=== PATIENT | male | born 1990 | race Caucasian/White ===

== ENCOUNTER 2020-04-29 10:51 | Emergency (ER) | payer MEDICAID, SELFPAY ==
[2020-04-29 10:53] VITALS: BP 135/94; PULSE 72; RESP 17; TEMP 36.4; O2SAT 100; BMI 23.3
--- NOTE | 2020-04-29 11:07 | ED.VISSUMM ---
- ER Visit Summary Date of Service: 04/29/20 Chief Complaint: Rash History of Present Illness: The patient is a 29 M who presents with a rash that has been getting worse over the past 3 days. Patient states he was clearing some brush and trees 3 days ago. Patient did not see any poison mary. Patient states the rash is pruritic. Patient states the rash is over both hands, arms, face, neck, and abdomen. Patient denies any difficulty breathing or difficulty swallowing. Patient states nothing makes it better or worse. Physical Examination: Vital signs are stable. Patient is afebrile. Patient is in no acute distress. Oral mucosa is pink and moist. Neck is supple. Trachea is midline. There is no JVD. Heart was regular rate and rhythm. Lungs are clear and equal bilaterally. Abdomen is soft and nontender. Skin is warm and dry. There is a patchy erythematous rash over the upper extremities, face, neck, chest, and abdomen. There are areas of linear vesicles. There is some mild drainage. There is no crusting. There are no petechia noted. There is no involvement of the mucous membranes. Cranial nerves II through XII are intact. There are no focal motor or sensory deficits noted. Emergency Department Course and Treatment: Patient was given a dose of prednisone here. Patient was given a prescription for prednisone. Patient was instructed to take Benadryl or Claritin as needed for any itching. Patient was instructed to follow-up with his primary care physician in 5 to 7 days. Patient understood and was agreeable with the plan. All questions were answered. Disposition: Discharge home Impression: 1. Rhus dermatitis This note was generated with [employer] dictation software. It may contain incorrect words, spelling, and punctuation that were not noted in review of the chart prior to signing ED Disposition - Plan for ED Patient: Disposition: Home or Assisted Living Diagnosis: Rhus dermatitis Instructions: ED Dermatitis Poison Mary Prescriptions: Prednisone [Deltasone] 60 mg PO DAILY #12 tab Prescription Printed Referrals: Alexey Romeo MD [STAFF PHYSICIAN] - 5-7 Days
--- NOTE | 2020-04-29 11:32 | ED.RN ---
apresoline was ordered on the wrong pt
[2020-04-29] MEDS: predniSONE 20 MG Tablet 60 MG PO (11:38)
== END 2020-04-29 11:39 | disposition home or self-care (01) ==
LOC: ED 11:29
PROVIDERS: Emergency Provider Emergency Medicine
DX: L23.7 Allergic contact dermatitis due to plants, except food (principal)
CPT/HCPCS: 99283

== ENCOUNTER 2022-05-30 08:57 | Emergency (ER) | payer OTHER, SELFPAY ==
[2022-05-30 08:59] VITALS: BP 102/64; PULSE 90; RESP 17; TEMP 35.8; O2SAT 97; BMI 22.3
--- NOTE | 2022-05-30 09:14 | RAD_ITS ---
STUDY: X-RAY - RIGHT TIBIA AND FIBULA REASON FOR EXAM: Male, 31 years old. Foreign Body TECHNIQUE: 3 view(s) of the tibia and fibula were obtained. COMPARISON: None. FINDINGS: Normal visualized tibia. Normal visualized fibula. There is an 8.1 cm metallic nail in the lateral soft tissues at the level of the lateral knee joint. No bony abnormality is seen. RAD/Tibia & Fibula 2 Views IMPRESSION: 8.1 cm nail in the lateral soft tissues overlying the lateral aspect of the knee joint. Electronically Signed: Magno Licona MD at 10:02 EDT ,
--- NOTE | 2022-05-30 09:24 | EX.ED.DYSGE1 ---
HPI <MARCOS Keene - Last Filed: 05/30/22 10:32> History of Present Illness Chief Complaint: Foreign Body Narrative Narrative: 31-year-old male with no signal medical history presents to the emergency department after shooting himself in the leg with a nail gun. Patient was on a job, where he used a nail gun, he was walking, tripped and when he fell he accidentally hit the trigger putting the nail into his right leg. The right nails just below the patella however he was unable to get it out. It was through the pants, patient has pain with any movement of the right leg. His tetanus vaccination is currently not up-to-date. PFSH <MARCOS Keene - Last Filed: 05/30/22 10:32> [facility] Medical History no medical history Home Medications cephalexin 500 mg capsule 500 mg PO Q6 #28 caps 05/30/22 [Rx Last Taken Unknown] Allergy/AdvReac Type Severity Reaction Status Date / Time Penicillins Allergy Unknown Verified 05/30/22 08:58 Surgical History no surgical history Social History Smoking Status: Never smoker ROS <MARCOS Keene - Last Filed: 05/30/22 10:32> ROS ED ROS Narrative Constitutional: Negative for fever, chills, weight loss, weakness Eyes: Negative for vision loss, vision change, double vision ENT: Negative for any sore throat, ear pain, congestion Cardiovascular: Negative for any chest pain, tightness, palpitations Respiratory: Negative for any cough, sputum production, hemoptysis, dyspnea, dyspnea on exertion, orthopnea Gastrointestinal: Negative for any abdominal pain, nausea, vomiting, diarrhea, constipation, blood in stool, blood in vomit : Negative for any urinary frequency, dysuria, retention, blood in urine Muscle skeletal: Negative for any muscle joint pain, stiffness, myalgias, arthralgias, neck pain, back pain. Pain to the right lateral knee Neurological: Negative for any headache, syncope, numbness or tingling, dizziness Skin: Negative for any rashes, lumps, itching, abrasions, lacerations. Foreign body, 3 inch nail to right lower leg Psychiatric: Negative for any depression, anxiety, stress, suicidal ideation, homicidal ideation Hematologic: Negative for any easy bruising, excessive bruising, easy bleeding Allergies: Negative for any eczema, hives, rash EXAM <MARCOS Keene - Last Filed: 05/30/22 10:32> Physical Exam Narrative Exam Narrative: Vital signs reviewed. HEET: Head normocephalic atraumatic, TMs clear bilaterally. Posterior pharynx is clear, moist mucous membranes. Nares clear bilaterally. Neck: Supple with no lymphadenopathy or tenderness. No signs of meningismus, negative jolt sign. Cardiac: Regular rate and rhythm no murmurs gallops or rubs, equal peripheral pulses bilaterally. Respiratory: Lungs clear to auscultation bilaterally. No chest tenderness. Abdomen: Soft, nontender, nondistended. No abdominal bruit or pulsatile masses. No hepatosplenomegaly Extremities: Patient has a 3 inch nail to the lateral right leg below the knee. However the edge of the nail is in line with the lower patella, this is a 3 inch nail and the nail is completely submerged into the leg. Patient has pain with any movement. There is no bleeding. No redness or drainage. Neuro: Cranial nerves II through XII intact, no focal neurological deficits. Skin: Clean dry and intact with no rash, purpura, petechiae, vesicles or pustules. Backs/flank: No CVA tenderness, no midline spinal tenderness, no deformity. Psych: Normal mood and affect. No SI, HI or acute psychosis. Const Vital Signs: 05/30/22 08:59 Temperature 96.4 F L Temperature Source Temporal Pulse Rate 90 Respiratory Rate 17 Blood Pressure 102/64 Blood Pressure Mean 76 Pulse Ox 97 Oxygen Delivery Method Room Air Positive well nourished and well developed General Appearance ED: well developed <Dr. Lalit Leavitt, - Last Filed: 05/30/22 10:36> Physical Exam Const Vital Signs: 05/30/22 08:59 Temperature 96.4 F L Temperature Source Temporal Pulse Rate 90 Respiratory Rate 17 Blood Pressure 102/64 Blood Pressure Mean 76 Pulse Ox 97 Oxygen Delivery Method Room Air [facility] <MARCOS Keene - Last Filed: 05/30/22 10:32> [facility] Lab Data Attestation: I reviewed the patient's lab results. Radiography Diagnostic Testing: Clinical Impression(s) from Imaging Studies Tibia/Fibula X-Ray 05/30/22 09:14 IMPRESSION: 8.1 cm nail in the lateral soft tissues overlying the lateral aspect of the knee joint. Electronically Signed: Magno Licona MD at 10:02 EDT , Treatment and Re-Evaluation Narrative: Patient arrives in mild distress secondary to a 3 inch nail in his lateral lower leg on the right side. Patient's tetanus vaccination was up-to-date here. Patient no neurological focal deficit. Patient did receive x-rays to ensure the place the nail. It did show an 8.1 cm nail in the lateral soft tissues overlying the lateral aspect of the knee joint. There is no osseous abnormality. I did was able to cleanse around the nail, I provided the patient with Percocet for pain. I also injected the area with lidocaine with epinephrine. I was able to use pliers and successfully remove the nail. Patient had immediate relief. He has full range of motion of the right leg after the nail removed. He still feels sore with ambulation however that is to be expected. This will be dressed with bacitracin dressing. Patient replaced on a short course of Keflex. Patient will follow-up with the [facility]. He did perform multiple tests for the Workmen's Comp. Patient struck to return for any worsening symptoms. <Dr. Lalit Leavitt, DO - Last Filed: 05/30/22 10:36> [facility] Narrative Medical decision making narrative: I have personally performed a face to face assessment of the patient and have reviewed the RADHA Note. I performed a substantive portion of the visit including all aspects of the following. My zapata findings include: History: Patient presents with foreign body to his right knee that occurred today. Patient was walking with a nail gun when he tripped. Patient states the nail gun accidentally went off and he shot a nail into the lateral aspect of his right knee. Patient states the pain is worse with any movement. Patient is unsure of his last tetanus. Patient denies any paresthesias or weakness. Exam: Vital signs are stable. Patient is afebrile. Patient is in no acute distress. There is a foreign body noted in the lateral aspect of the right knee. There is no active bleeding noted. There is no erythema. Range of motion was limited in all motions of the right knee secondary to pain. Sensation was intact to light touch bilaterally in the lower extremities. Strength is 5/5 bilaterally in the lower extremities. Medical Decision Making: Patient was given a tetanus booster. X-rays of the right tibia and fibula were obtained. There are 3 views. On my interpretation, there is a foreign body noted in the soft tissue overlying the lateral aspect of the knee. There is no bony abnormality. Radiologist also interpreted the x-rays and agrees. Patient was given injection of lidocaine with epinephrine. The foreign body was removed without difficulty. Patient tolerated the procedure well. Patient was given a prescription for Keflex. Patient was given a dose of oxycodone here. Patient was instructed to follow-up with Workmen's Comp. or his primary care physician in 5 to 7 days. Patient understood and was agreeable with the plan. All questions were answered. Radiography Diagnostic Testing: Clinical Impression(s) from Imaging Studies Tibia/Fibula X-Ray 05/30/22 09:14 IMPRESSION: 8.1 cm nail in the lateral soft tissues overlying the lateral aspect of the knee joint. Electronically Signed: Magno Licona MD at 10:02 EDT , Discharge Plan Triage Chief Complaint: Foreign Body ED Midlevel Provider: Alexey Porter ED Provider: Lalit Leavitt Dx/Rx/DC Orders Prescriptions: No Action NK Primary Care Provider: Care Physician,No Primary Referrals: Care Physician,No Primary [Primary Care Provider] -
[2022-05-30] MEDS: Diphth,Pertuss(Acell),Tet Vac 0.5 ML Vial IM (09:28)
[2022-05-30] MEDS: Lidocaine 1% /Epi 1:100 (20ml) 20 ML Vial 3 ML INFILT (10:25)
--- NOTE | 2022-05-30 10:37 | ED.RN ---
PT REFUSED WOUND CLEASNING OR DRESSING. REPORTS I WANT TO GET OUT OF HERE SOON POSSIBLE BECAUSE I HAVE TO FIND A NEW JOB. THIS RN OFFERS TO ASSIST PT IN WOUND CLEANSING AND APPLYING A DRESSING. PT REFUSES.
== END 2022-05-30 10:39 | disposition home or self-care (01) ==
PROVIDERS: Emergency Provider Emergency Medicine; Visit Provider Emergency Medicine
DX: S81.841A Puncture wound with foreign body, right lower leg, initial encounter (principal); W29.4XXA Contact with nail gun, initial encounter; Z23 Encounter for immunization; Y99.0 Civilian activity done for income or pay
CPT/HCPCS: 27372; 73590; 90471; 90715; 99282